=== PATIENT | female | born 1985 ===

== ENCOUNTER 2017-02-01 21:21 | Emergency (ER) | payer MEDICAID ==
[2017-02-01 21:38] VITALS: BP 103/66; PULSE 100; RESP 20; TEMP 99.1; O2SAT 98
[2017-02-01] MEDS ORDERED: Sodium Chloride 0.9% 1,000 ML IV STA (21:57)
--- NOTE | 2017-02-01 22:09 | ED PDOC ---
HPI: CCC, URI, Sore Throat Time Seen by Provider: 02/01/17 21:47 Chief Complaint (Nursing): Cough, Cold, Congestion Chief Complaint (Provider): flu like symptoms History Per: Patient History/Exam Limitations: no limitations Additional Complaint(s): 31yo F in Ed for evla of body aches, dry cough, nasal congestion and FARRIS(6./10- at worst and improved with tylenol-taken earlier today). negative for: fever, productive cough, ear pain sore thoart or sick contacts. no foreign travel and no chest pain. denies pelvic pain or abd pain denies vaginal bleeding Past Medical History Reviewed: Historical Data, Nursing Documentation, Vital Signs Vital Signs: Last Vital Signs Temp 99.1 F 02/01/17 21:35 Pulse 100 H 02/01/17 21:35 Resp 20 02/01/17 21:35 BP 103/66 02/01/17 21:35 Pulse Ox 98 02/01/17 22:10 - Medical History PMH: Depression - Surgical History Surgical History: - Family History Family History: States: No Known Family Hx - Home Medications Home Medications: Ambulatory Orders Medication Instructions Recorded Cephalexin [Keflex] 500 mg PO BID #10 cap 01/18/15 Medroxyprogesterone Acetate 01/18/15 [Depo-Provera Contraceptive] Sertraline HCl [Sertraline] 1 tab PO DAILY 01/18/15 Doxycycline Hyclate [Doxycycline] 100 mg PO BID #14 tab 01/21/15 Dextromethorphan HBr [Tussin 15 mg PO BID #100 ml 02/01/17 Long-Acting] - Allergies Allergies/Adverse Reactions: Allergies Allergy/AdvReac Type Severity Reaction Status Date / Time No Known Allergies Allergy Verified 01/21/15 21:40 Review of Systems ROS Statement: Except As Marked, All Systems Reviewed And Found Negative ENT: Positive for: Nose Congestion. Negative for: Ear Pain, Ear Discharge, Nose Pain, Nose Discharge, Mouth Pain, Mouth Swelling, Throat Pain, Throat Swelling Respiratory: Positive for: Cough Physical Exam - Reviewed Nursing Documentation Reviewed: Yes Vital Signs Reviewed: Yes - Physical Exam Appears: Positive for: Non-toxic, No Acute Distress, Uncomfortable Head Exam: Positive for: ATRAUMATIC, NORMAL INSPECTION, NORMOCEPHALIC Skin: Positive for: Normal Color, Warm, DRY Eye Exam: Positive for: EOMI, Normal appearance, PERRL ENT: Positive for: Normal ENT Inspection Neck: Positive for: Normal, Painless ROM Cardiovascular/Chest: Positive for: Regular Rate, Rhythm Respiratory: Positive for: CNT, Normal Breath Sounds Gastrointestinal/Abdominal: Positive for: Normal Exam, Bowel Sounds, Soft. Negative for: Tenderness Neurologic/Psych: Positive for: Alert, Oriented - ECG O2 Sat by Pulse Oximetry: 98 - Progress ED Course And Treament: will be tested for the flu. impression: viral will get IV fluids. Medical Decision Making Medical Decision Making: negative for influ a./b pt feels better after fluids will d.c home Disposition - Clinical Impression Clinical Impression: Upper respiratory infection - Patient ED Disposition Is Patient to be Admitted: No Counseled Patient/Family Regarding: Need For Followup - Disposition Disposition: Routine/Home Disposition Time: 22:57 Condition: IMPROVED Prescriptions: Dextromethorphan HBr [Tussin Long-Acting] 15 mg PO BID #100 ml Instructions: Dehydration (ED) Forms: [facility] (Burmese)
== END 2017-02-01 23:21 | disposition home or self-care (01) ==
LOC: H.ER 21:21
DX: J06.9 Acute upper respiratory infection, unspecified (principal)
CPT/HCPCS: 87804; 99282; J7040

== ENCOUNTER 2017-04-23 05:28 | Emergency (ER) | payer MEDICAID ==
[2017-04-23 18:34] VITALS: BP 111/73; PULSE 77; RESP 18; TEMP 98.3; O2SAT 100
== END 2017-04-23 08:30 | disposition home or self-care (01) ==
LOC: H.EROB2 05:28
DX: O26.93 Pregnancy related conditions, unspecified, third trimester (principal); R10.2 Pelvic and perineal pain; Z3A.37 37 weeks gestation of pregnancy; O47.1 False labor at or after 37 completed weeks of gestation

== ENCOUNTER 2017-04-29 12:24 | Emergency (ER) | payer MEDICAID ==
[2017-04-29 17:23] VITALS: BP 118/72; PULSE 106; TEMP 97.6; O2SAT 100
== END 2017-04-29 13:23 | disposition home or self-care (01) ==
LOC: H.EROB2 12:24 → EDSTATUS 05-02 13:15
DX: O36.8130 Decreased fetal movements, third trimester, not applicable or unspecified (principal); O24.419 Gestational diabetes mellitus in pregnancy, unspecified control; Z3A.38 38 weeks gestation of pregnancy; O47.1 False labor at or after 37 completed weeks of gestation

== ENCOUNTER 2017-05-09 07:39 | Inpatient (IN) | payer MEDICAID ==
[2017-05-09 07:27] VITALS: BMI 26.9
[~2017-05-09 07:39] MED LIST: ceFAZolin IV 1 gm in Dextrose 1 GM/50 ML BAG IVPB ONE
[2017-05-09] MEDS ORDERED: Lactated Ringer's 1,000 ML IV SCH ×2 (07:45→21:00)
[2017-05-09 08:05] LABS: BASO % 0.6 % (0.0-2.0); EOS # 0.1 K/uL (0.0-0.7); HEMOGLOBIN 11.8 g/dL (12.0-16.0); LYMPH # 1.9 K/uL (1.0-4.3); LYMPH % 24.4 % (20.0-40.0); MEAN CELL VOLUME 89.9 fl (81.0-99.0); MEAN CORPUSCULAR HEMOGLOBIN 29.9 pg (27.0-31.0); MEAN CORPUSCULAR HGB CONC 33.3 g/dL (33.0-37.0); MEAN PLATELET VOLUME 9.8 fl (7.2-11.7); MONO # 0.5 K/uL (0.0-0.8); MONO % 6.5 % (0.0-10.0); NEUT # 5.4 K/uL (1.8-7.0); NEUT % 67.5 % (50.0-75.0); NRBC % 0.1 % (0.0-0.0); RBC 3.93 Mil/uL (3.80-5.20); WHITE BLOOD COUNT 7.9 K/uL (4.8-10.8)
[2017-05-09] MEDS ORDERED: Oxytocin 30 units/LR 500ML 30 U/500 ML BAG IV ONE (08:27)
[2017-05-09] MEDS ORDERED: Oxytocin 30 UNITS in Sodium Chloride 0.9% 500 ML IV ONE (09:00)
--- NOTE | 2017-05-09 10:59 | OBADHP ---
Datetime: 05/09/2017 07:44 Admit Comment, IP Provider: 32 yo F with IUP at 39.5 weeks admitted for scheduled c- section . Patient reports feeling fine today, no complaints at this time, -lof, vb, +ctx, +FM. PNC: [facility], PCP Dr Spencer. GBS +, HIV-, rpr-, HIV-,rubella immune, HB sAg -. PObH:ABx2, SAB x2, NVD x1, C section x1 2009. PGynH: chlamydia as teenager, treated PMH:none FMH: none PSH: c-scetion x1 2010 Meds: PNV SH: -tobacco, alcohol, recreational drugs Allergies NKDA. VS: BP 108/78, HR 70, RR 18 FHR 115, mod variability/15x15/cat I/no decc A/P 32 yo F with IUP at 39.5 weeks admitted for scheduled c- section. Admit to unit Initiate c/s protocol and maternal monitoring prophylactic abx IV access, fluis NPO Deven Noble PGY 1 Agree with above H+P -Dr. Bateman Pelvic Type - PN: Adequate Extremities - PN: Normal Abdomen - PN: Normal Back - PN: Normal Breast - PN: Normal Lungs - PN: Normal Heart - PN: Normal Thyroid - PN: Normal Neurologic - PN: Normal HEENT - PN: Normal General - PN: Normal FHR - Baseline A Provider: 115 Gestation - Est Wks by US: 39.5 Vital Signs Provider: Reviewed; Within Normal Limits IP Chief Complaint: Scheduled Section NICHD Variability Prov Fetus A: Moderate 6-25bpm NICHD Accel Fetus A IP Provider: 15X15 FHR Category Provider Fetus A: Category I NICHD Decel Fetus A IP Provider: None Genitourinary Exam: Normal DTRs - PN: Normal EGA AdmitDate IP: 39.4 IP Adm Impression: Term, intrauterine IP Admit Plan: Admit to unit; Initiate Section protocol Datetime: 04/29/2017 12:55 IP Hx Assessment: The History has been Reviewed and is Current Datetime: 04/23/2017 06:40 Pool Provider: Negative Dilatation, Provider: 0 Effacement, Provider: 0 Station, Provider: -3
[2017-05-09] MEDS ORDERED: Morphine 1 mg/ml preservative-free Inj(Duramorph) ONE (13:00)
[2017-05-09] MEDS ORDERED: ceFAZolin 1 GM in Sodium Chloride 0.9% 100 ML IVPB ONE (13:00)
[2017-05-09] MEDS ORDERED: DiphenhydrAMINE 50 mg/ml Inj IVP PRN (15:55)
[2017-05-09] MEDS: Oxycodone/Acetaminophen 5/325 mg Tab PO PRN (21:25)
[2017-05-10] MEDS: Oxycodone/Acetaminophen 5/325 mg Tab PO PRN ×4 (06:13→22:48)
[2017-05-10 07:20] LABS: BASO % 0.2 % (0.0-2.0); EOS # 0.1 K/uL (0.0-0.7); HEMOGLOBIN 11.4 g/dL (12.0-16.0); LYMPH # 1.1 K/uL (1.0-4.3); MEAN CELL VOLUME 88.8 fl (81.0-99.0); MEAN CORPUSCULAR HEMOGLOBIN 30.4 pg (27.0-31.0); MEAN CORPUSCULAR HGB CONC 34.2 g/dL (33.0-37.0); MEAN PLATELET VOLUME 9.7 fl (7.2-11.7); MONO # 0.5 K/uL (0.0-0.8); MONO % 6.3 % (0.0-10.0); NEUT # 6.4 K/uL (1.8-7.0); NEUT % 78.5 % (50.0-75.0); NRBC % 0.1 % (0.0-0.0); RBC 3.76 Mil/uL (3.80-5.20); RED CELL DISTRIBUTION WIDTH 13.8 % (11.5-14.5); WHITE BLOOD COUNT 8.1 K/uL (4.8-10.8)
--- NOTE | 2017-05-10 11:58 | OBPPN ---
Datetime: 05/10/2017 08:00 PP Pain Prov: Within normal limits PP Nausea Prov: Denies PP Flatus Prov: Yes PP BM Prov: No PP Breasts Prov: Not Done PP Heart Prov: Normal PP Lungs Prov: Normal PP Abdomen/Uterus Prov: Normal PP Lochia Prov: Normal PP Vulva/Perineum Prov: Not Done PP CVA Tenderness Prov: Normal PP Extremities Prov: Normal PP C/S Incision Prov: Normal PP Progress Prov: Normal PP Impression Prov: Normal progression PP Plan Prov: Continue present management PP Progress Note Prov: POD 1 S: 32 yo s/p on 05/09/17. Pt. is seen and examined at bedside this AM. No overn ight events. Pt reports mild abdominal pain, but well controlled with pain meds. D/c king, dressing to be removed at 15:00. No nausea, advised to advance diet as tolerated. Breast feeding without diffi culty. Lochia is similar to menses volume. No bowel movement, but passing gas per rectum. Denies feve r/chills, diarrhea, nausea/vomiting, chest pain, dyspnea, and dizziness. O: VS: stable GEN: NAD, seen baby Cardio: S1S2, no M/G/R Lungs: clear breath sounds b/l Abdomen: BS+, tenderness to palpation. Incision scar to be examined at 13:00 with dressing removal . Uterus is firm and at the level of the umbilicus. EXT: No edema, calves nontender NEURO/PSYCH: AAOx3, no grossly focal deficits, preserved affect and mood. Assessment/Plan: 32 yo s/p on 05/09/17. Pt remains afebrile, tolerating pain wit h medication, doing well on POD#1. OOB with caution SCDs for DVT prophylaxis, encouraged ambulating Percocet 5/325mg, and Motrin 600mg for pain. Colace 100mg PO BID/Senokot 17.2 mg for constipation Encourage and ambulating f/u CBC post op: pending Tdap before d/c? Anticipated d/c to home, 05/12/17. --- Lukas Rodriguez MD PGY-1 The patient was seen with the resident and I agree with the notes IP PP Procedures: None Vital Signs Provider PP: Reviewed; Within Normal Limits
[2017-05-11] MEDS: Oxycodone/Acetaminophen 5/325 mg Tab PO PRN (04:37)
[2017-05-11] MEDS ORDERED: Simethicone 40 mg/0.6 ml Liquid (30 ml) PO PRN (07:12)
[2017-05-11] MEDS: Simethicone 80 mg Chewtab PO PRN ×2 (09:41→14:21)
[2017-05-12] MEDS: Oxycodone/Acetaminophen 5/325 mg Tab PO PRN (04:45)
[2017-05-12] MEDS: Simethicone 80 mg Chewtab PO PRN (09:53)
--- NOTE | 2017-05-12 12:12 | OBDCSUM ---
Datetime: 05/12/2017 06:40 Discharged to, Provider: Home Follow up at, Provider: [facility] Disch Instr Activity: Normal activity; May Shower Disch Instr Diet: Regular Discharge Instructions, Provider: Routine instructions given Discharge Diagnosis, Provider: Term Delivered Discharge Time: 05/12/2017 10:00 Follow up in weeks, Provider: 4-6 days wound care; 4-6 weeks pp Disch Referrals: None Contraception discussed, Prov: Yes Disch Activity Restrictions: No exercising; No lifting; No driving; No sexual activity; Nothing in v agina - [place], tampons, douche Discharge Comment, Provider: Discharge Summary DOA: 05/09/2017 EGA: 39.4 Diagnosis: Term Risk factors: repeat c/s Summary of : 32 yo F L_D summary DOL: 05/09/2017 at 14:45 NB: F : 9/9 Weight: 2730g PP summary No serious complications during Post-Op. Lochia= menses, mild pain, controlled with medications Rubella immune, Tdap done Blood type: B ab neg CBC pp: 11.4 Discharge Date: 05/12/2017 Time 10:00 AM Discharge Instructions: -encourage -percocet/Ibuprofen for pain PRN -Senokot 17.2 mg qHS for constipation -Ambulate as tolerated -f/u NB visit 3-7 days w/ operations support specialist and PP visit 4-6 weeks with OB; Dressing removal/wound care 3-7 days; --- Lukas Rodriguez MD PGY-1 Contraception after Delivery: Tubal Ligation
--- NOTE | 2017-05-12 12:12 | OBPPN ---
Datetime: 05/12/2017 06:40 PP Pain Prov: Within normal limits PP Nausea Prov: Denies PP Flatus Prov: Yes PP BM Prov: No PP Breasts Prov: Not Done PP Heart Prov: Normal PP Lungs Prov: Normal PP Abdomen/Uterus Prov: Normal PP Lochia Prov: Normal PP Vulva/Perineum Prov: Not Done PP CVA Tenderness Prov: Normal PP Extremities Prov: Normal PP C/S Incision Prov: Normal PP Progress Prov: Normal PP Impression Prov: Normal progression PP Plan Prov: Discharge PP Progress Note Prov: POD 3 S: 32 yo s/p on 05/09/17. Pt. is seen and examined at bedside this AM. No overn ight events. Pt reports mild abdominal pain, but well controlled with pain meds. D/c king, dressing removed, incision site healing well, no exudate seen, dry and intact. No nausea, advised to advance d iet as tolerated. Breast feeding without difficulty. Lochia is similar to menses volume. No bowel mov ement, but passing gas per rectum. Denies fever/chills, diarrhea, nausea/vomiting, chest pain, dyspne a, and dizziness. O: VS: stable GEN: NAD Cardio: S1S2, no M/G/R Lungs: clear breath sounds b/l Abdomen: BS+, tenderness to palpation. Incision scar noted, well healing with no exudate seen, dry and intact. Uterus is firm and at the level of the umbilicus. EXT: No edema, calves nontender NEURO/PSYCH: AAOx3, no grossly focal deficits, preserved affect and mood. Assessment/Plan: 32 yo s/p on 05/09/17. Pt remains afebrile, tolerating pain wit h medication, doing well on POD#3. OOB with caution SCDs for DVT prophylaxis, encouraged ambulating Percocet 5/325mg, and Motrin 600mg for pain. Colace 100mg PO BID/Senokot 17.2 mg for constipation Encourage and ambulating f/u CBC post op: 11.4/33.4 Anticipated d/c to home, 05/12/17. --- Lukas Rodriguez MD PGY-1 OB Hospitalist on-call. On rounds this morning, I saw and examined this pt. Agree with PGY 1 not delia LIMA PP Procedures: None Vital Signs Provider PP: Reviewed; Within Normal Limits
[2017-05-12 13:26] LABS: SQUAMOUS EPITHIAL 1 /hpf (0-5); URINE BILIRUBIN NEGATIVE (NEGATIVE); URINE BLOOD SMALL (NEGATIVE); URINE CLARITY CLEAR (Clear); URINE COLOR YELLOW (YELLOW); URINE GLUCOSE (UA) NEG (Normal); URINE LEUKOCYTE ESTERASE NEG Leu/uL (Negative); URINE NITRATE NEGATIVE (NEGATIVE); URINE PROTEIN NEGATIVE (NEGATIVE); URINE UROBILINOGEN 0.2-1.0 mg/dL (0.2-1.0)
[2017-05-12 18:34] VITALS: BP 112/69; PULSE 77; RESP 20; TEMP 98; O2SAT 99
== END 2017-05-12 14:05 | disposition home or self-care (01) | DRG 371 ==
LOC: H.L&D 07:39 → H.OB/GYN 20:44
PROVIDERS: ADMIT Obstetrics & Gynecology; ATTEND Obstetrics & Gynecology
PROC: 10D00Z1 Extraction of Products of Conception, Low, Open Approach (ICD-10-PCS; principal; 2017-05-09)
PROC: 4A1HXCZ Monitoring of Products of Conception, Cardiac Rate, External Approach (ICD-10-PCS; 2017-05-09)
DX: O34.219 Maternal care for unspecified type scar from previous cesarean delivery (principal); K59.00 Constipation, unspecified; Z37.0 Single live birth; N85.8 Other specified noninflammatory disorders of uterus; Z3A.39 39 weeks gestation of pregnancy

== ENCOUNTER 2017-12-24 06:41 | Observation (INO) | payer SELFPAY ==
[2017-12-24 06:41] VITALS: BMI 26.9
[2017-12-24] MEDS ORDERED: Tdap Vaccine 0.5 ml Vial (10-64 yrs) IM ONE ×2 (07:18→07:52)
[2017-12-24] MEDS ORDERED: Lidocaine 1% Inj (20ml) IJ STA (07:37)
[2017-12-24] MEDS ORDERED: Lidocaine Hydrochloride 5 ML INJ ONE (07:39)
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
[2017-12-24] MEDS ORDERED: Povidone Iodine Topical 10% Sol ONE (07:41)
[2017-12-24] MEDS ORDERED: Lidocaine Hydrochloride 1% 0 ML ONE (07:55)
--- NOTE | 2017-12-24 09:12 | RAD ---
PROCEDURE: Right Hand Radiographs. HISTORY: r/o FB COMPARISON: None. FINDINGS: BONES: No fracture. JOINTS: Multiple punctate radiopaque foreign bodies in the soft tissues of the palmar aspect of the hand. Possible laceration adjacent to radial aspect of the trapezium. No lytic or blastic osseous lesion. SOFT TISSUES: As above OTHER FINDINGS: None. IMPRESSION: Multiple punctate radiopaque foreign bodies in the palmar soft tissues of the hand.
[2017-12-24] MEDS ORDERED: ceFAZolin 1 GM in Sodium Chloride 0.9% 100 ML IVPB STA (10:17)
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
[2017-12-24 12:01] LABS: BASO % 0.5 % (0.0-2.0); EOS % 0.1 % (0.0-4.0); HEMOGLOBIN 13.5 g/dL (12.0-16.0); LYMPH % 25.9 % (20.0-40.0); MEAN CORPUSCULAR HEMOGLOBIN 29.1 pg (27.0-31.0); MEAN CORPUSCULAR HGB CONC 33.8 g/dL (33.0-37.0); MEAN PLATELET VOLUME 10.1 fl (7.2-11.7); MONO # 0.4 K/uL (0.0-0.8); MONO % 4.7 % (0.0-10.0); NEUT # 5.2 K/uL (1.8-7.0); NEUT % 68.8 % (50.0-75.0); NRBC % 0.1 % (0.0-0.0); RBC 4.65 Mil/uL (3.80-5.20); WHITE BLOOD COUNT 7.6 K/uL (4.8-10.8)
[2017-12-24 12:06] LABS: ALB/GLOB RATIO 1.3 (1.0-2.1); ALBUMIN 5.1 g/dL (3.5-5.0); ALT/SGPT 27 U/L (9-52); AST/SGOT 32 U/L (14-36); BLOOD UREA NITROGEN 10 mg/dl (7-17); CALCIUM 9.8 mg/dL (8.4-10.2); GFR NON-AFRICAN AMERICAN > 60
[2017-12-24 12:09] LABS: INR 1.2; PROTHROMBIN TIME 12.9 Seconds (9.8-13.1)
[2017-12-24 12:12] LABS: PARTIAL THROMBOPLASTIN TIME 25.4 Seconds (25.6-37.1)
[2017-12-24] MEDS ORDERED: ceFAZolin 1 GM in Sodium Chloride 0.9% 100 ML IVPB SCH (21:00)
[2017-12-25 06:32] LABS: BLOOD UREA NITROGEN 9 mg/dl (7-17); GFR NON-AFRICAN AMERICAN > 60
[2017-12-25 06:38] LABS: BASO % 0.3 % (0.0-2.0); EOS # 0.1 K/uL (0.0-0.7); EOS % 1.7 % (0.0-4.0); HEMOGLOBIN 12.7 g/dL (12.0-16.0); LYMPH # 2.4 K/uL (1.0-4.3); LYMPH % 37.8 % (20.0-40.0); MEAN CELL VOLUME 86.4 fl (81.0-99.0); MEAN CORPUSCULAR HEMOGLOBIN 29.1 pg (27.0-31.0); MEAN CORPUSCULAR HGB CONC 33.7 g/dL (33.0-37.0); MEAN PLATELET VOLUME 9.8 fl (7.2-11.7); MONO # 0.4 K/uL (0.0-0.8); MONO % 6.7 % (0.0-10.0); NEUT # 3.5 K/uL (1.8-7.0); NEUT % 53.5 % (50.0-75.0); NRBC % 0.1 % (0.0-0.0); RBC 4.36 Mil/uL (3.80-5.20); RED CELL DISTRIBUTION WIDTH 14.9 % (11.5-14.5); WHITE BLOOD COUNT 6.5 K/uL (4.8-10.8)
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
[2017-12-25] MEDS ORDERED: ceFAZolin IV 1 gm in Dextrose 1 GM/50 ML BAG IVPB ONE (08:30)
[2017-12-25] MEDS ORDERED: Bupivacaine HCl 0.5% PF (30 ml) Inj ONE (08:30)
[2017-12-25] MEDS ORDERED: Lidocaine 2% MPF (5 ml) Inj ONE (08:30)
[2017-12-25] MEDS ORDERED: ceFAZolin IV 1 gm in Dextrose 1 GM/50 ML BAG IVPB SCH (09:00)
[2017-12-25] MEDS ORDERED: Propofol 10 mg/ml Inj (20 ML) ONE (09:41)
[2017-12-25] MEDS ORDERED: Midazolam 2 MG/2 ML VIAL ONE (09:42)
[2017-12-25] MEDS ORDERED: Lidocaine 4% (Laryng-O-Jet) Kit MM ONE (09:42)
[2017-12-25] MEDS ORDERED: Lidocaine 2% MPF (5 ml) Inj INJ ONE (10:14)
[2017-12-25] MEDS ORDERED: Bupivacaine 0.5% Inj(30mL) IJ ONE (10:14)
[2017-12-25] MEDS ORDERED: Dexamethasone 4 mg/1 ml ONE (10:18)
[2017-12-25] MEDS ORDERED: Strong Iodine Topical Sol. 5%-10% TOP ONE (10:39)
[2017-12-25] MEDS ORDERED: Hydrogen Peroxide 237 ML SOL TP ONE (10:39)
[2017-12-25] MEDS ORDERED: Povidone Iodine Topical 10% Sol TOP ONE (10:39)
[2017-12-25] MEDS ORDERED: Lactated Ringer's 1,000 ML IV ONE (10:47)
[2017-12-25] MEDS ORDERED: HYDROmorphone 0.5 mg/0.5 ml ISec IVP PRN (10:50)
--- NOTE | 2017-12-25 10:51 | PCM.SURG1 ---
Surgeon's Initial Post Op Note - Surgeon's Notes Surgeon: Dr. Jeremy Savage Lead Nuclear Medicine Technologist: Laura Rodriguez, PGY-2 Type of Anesthesia: General LMA Anesthesia Administered By: Dr. Thompson Pre-Operative Diagnosis: Right wrist laceration, tendon laceration Operative Findings: See op report Post-Operative Diagnosis: Extensor pollis brevis tendon transection of right hand, right wrist laceration, superficial laceration of dorsum of 3rd digit Operation Performed: Right wrist wound exploration, Repair of extensor pollicis brevis of right hand, right wrist laceration repair, and repair of 3rd digit laceration of right hand Specimen/Specimens Removed: None Estimated Blood Loss: EBL {In ML}: 2 Blood Products Given: N/A Drains Used: No Drains Post-Op Condition: Good Date of Surgery/Procedure: 12/25/17 Time of Surgery/Procedure: 10:52
[2017-12-25] MEDS ORDERED: Oxycodone/Acetaminophen 5/325 mg Tab PO PRN (10:54)
[2017-12-25 12:56] VITALS: BP 114/77; PULSE 59; RESP 20; TEMP 98; O2SAT 98
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
== END 2017-12-25 15:35 | disposition home or self-care (01) ==
LOC: H.ER 06:41 → H.ERHOLD 10:18 → H.MEDSURG1 14:07
DX: S66.821A Laceration of other specified muscles, fascia and tendons at wrist and hand level, right hand, initial encounter (principal); X99.0XXA Assault by sharp glass, initial encounter; Z23 Encounter for immunization; Z87.891 Personal history of nicotine dependence; Y92.89 Other specified places as the place of occurrence of the external cause
CPT/HCPCS: 25270; 36415; 73130; 80048; 80053; 81025; 85025; 85610; 85730; 86850; 86900; 87040; 90471; 90715; 99284; G0378; J0690; J1100; J2001; J2250; J2405; J2704; J3010; J7030; J7120

== ENCOUNTER 2018-08-03 13:33 | Emergency (ER) | payer MEDICAID ==
[2018-08-03 13:33] VITALS: BMI 26.9
[2018-08-03 13:59] VITALS: BP 107/76; PULSE 90; RESP 18; TEMP 99; O2SAT 99
--- NOTE | 2018-08-03 14:25 | ED PDOC ---
HPI: CCC, URI, Sore Throat Time Seen by Provider: 08/03/18 14:10 Chief Complaint (Nursing): Flu-like Symptoms Chief Complaint (Provider): Cough, congestion, body aches History Per: Patient History/Exam Limitations: no limitations Current Symptoms Are (Timing): Still Present Associated Symptoms: Cough. denies: Sore Throat, Vomiting, Diarrhea Additional Complaint(s): 33 year old female, with no past medical history, presents to the ED with cough, congestion, and body aches for 2 days. Patient states he did not check for fever. Denies sore throat, vomiting, or diarrhea. PMD: Clinic Past Medical History Reviewed: Historical Data, Nursing Documentation, Vital Signs Vital Signs: Last Vital Signs Temp 99 F 08/03/18 13:57 Pulse 90 08/03/18 13:57 Resp 18 08/03/18 13:57 BP 107/76 08/03/18 13:57 Pulse Ox 99 08/03/18 13:57 - Medical History PMH: No Chronic Diseases Denies: Depression, Diabetes, HTN, Chronic Kidney Disease - Surgical History Surgical History: Tonsillectomy, - Family History Family History: States: Unknown Family Hx - Immunization History Hx Tetanus Toxoid Vaccination: No - Home Medications Home Medications: Ambulatory Orders Medication Instructions Recorded Acetaminophen/Oxycodone Hydr 1 tab PO Q4H #30 tab 12/25/17 [Percocet 10/325 mg Tab] Cephalexin [cephalexin] 500 mg PO TID #30 cap 12/25/17 Naproxen [Naprosyn] 500 mg PO Q12H #20 tab 08/03/18 Oseltamivir Cap [Tamiflu] 75 mg PO BID #10 cap 08/03/18 - Allergies Allergies/Adverse Reactions: Allergies Allergy/AdvReac Type Severity Reaction Status Date / Time No Known Allergies Allergy Verified 01/21/15 21:40 Review of Systems ROS Statement: Except As Marked, All Systems Reviewed And Found Negative Constitutional: Positive for: Other (Bodyaches) ENT: Positive for: Nose Congestion, Throat Pain (Sore throat) Respiratory: Positive for: Cough Gastrointestinal: Negative for: Vomiting, Diarrhea Physical Exam - Reviewed Nursing Documentation Reviewed: Yes Vital Signs Reviewed: Yes - Physical Exam Appears: Positive for: No Acute Distress Head Exam: Positive for: ATRAUMATIC, NORMOCEPHALIC Skin: Positive for: Normal Color, Warm, Dry Eye Exam: Positive for: Normal appearance ENT: Positive for: Normal ENT Inspection Neck: Positive for: Normal, Painless ROM Cardiovascular/Chest: Positive for: Regular Rate, Rhythm Respiratory: Positive for: Normal Breath Sounds. Negative for: Wheezing, Respiratory Distress Extremity: Positive for: Normal ROM Neurological/Psych: Positive for: Awake, Alert, Normal Tone, Oriented - ECG O2 Sat by Pulse Oximetry: 99 (RA) Pulse Ox Interpretation: Normal Medical Decision Making Medical Decision Making: Initial Impression: Cough, congestion, bodyaches Initial Plan: --ED urine --Chest X-ray --Influenza A B stat Scribe Attestation: Documented by Rai Archer acting as a scribe for Terrance Fox MD. Provider Scribe Attestation: All medical record entries made by the Scribe were at my direction and personally dictated by me. I have reviewed the chart and agree that the record accurately reflects my personal performance of the history, physical exam, medical decision making, and the department course for this patient. I have also personally directed, reviewed, and agree with the discharge instructions and disposition. Disposition - Clinical Impression Clinical Impression: Influenza - Patient ED Disposition Is Patient to be Admitted: No Counseled Patient/Family Regarding: Studies Performed, Diagnosis, Need For Followup, Rx Given - Disposition Referrals: [facility] [Outside] Disposition: Routine/Home Disposition Time: 15:30 Condition: FAIR Prescriptions: Naproxen [Naprosyn] 500 mg PO Q12H #20 tab Oseltamivir Cap [Tamiflu] 75 mg PO BID #10 cap Instructions: Flu Forms: [employer] (T[place]anian)
--- NOTE | 2018-08-03 15:56 | RAD ---
Date of service: 08/03/2018 HISTORY: Cough COMPARISON: 07/08/2013. TECHNIQUE: Chest PA and lateral FINDINGS: LINES AND TUBES: None. LUNG AND PLEURA: The lungs are well inflated and clear. No pleural effusion or pneumothorax. HEART AND MEDIASTINUM: The heart is not enlarged. No aortic atherosclerotic calcifications present. The hilar and mediastinal contours are within normal limits. SKELETAL STRUCTURES: The bony structures are within normal limits for the patient's age. VISUALIZED UPPER ABDOMEN: Normal. OTHER FINDINGS: None. IMPRESSION: No active pulmonary disease.
== END 2018-08-03 15:44 | disposition home or self-care (01) ==
LOC: H.ER 13:33
DX: J11.1 Influenza due to unidentified influenza virus with other respiratory manifestations (principal)